=== PATIENT | female | born 1965 | race Caucasian/White ===

== ENCOUNTER 2024-11-20 09:12 | Emergency (ER) | payer OTHER, SELFPAY ==
--- NOTE | ~2024-11-20 | XR_ITS ---
HISTORY: Rt. knee pain x1 day, NKI COMPARISON: None TECHNIQUE: 3 views of the right knee were performed FINDINGS: No acute or subacute fracture, erosion, lytic or sclerotic lesion. Medial and lateral tibiofemoral joint space narrowing is identified. No suprapatellar joint effusion is identified. The infrapatellar joint space is clear. IMPRESSION: Degenerative disease, without acute fracture. Reviewed, dictated and finalized at location A. SPECIALIST
[2024-11-20 09:12] VITALS: BP 166/73; PULSE 97; RESP 16; TEMP 36.4; O2SAT 99
--- NOTE | 2024-11-20 09:30 | ED_ITS ---
HPI - Extremity Problem General Chief complaint: Extremity Problem,Nontraumatic Stated complaint: right knee pain Time Seen by Provider: 11/20/24 09:30 Source: patient and family Mode of arrival: ambulatory Limitations: no limitations History of Present Illness HPI Narrative: 5 years old white female drove herself to the emergency room because of pain at the right knee. Patient went to sleep on the couch yesterday for the 1st time and was doing okay, workup with right knee pain anteriorly, worse when she tries to bend it. She denies any trauma. Related Data Home Medications ?Medication ?Instructions ?Recorded ?Confirmed ?Last Taken ?Type omeprazole 20 mg capsule,delayed 20 mg PO DAILY 11/20/24 11/20/24 History release Allergies Allergy/AdvReac Type Severity Reaction Status Date / Time No Known Allergies Allergy Mild Verified 11/20/24 09:18 Review of Systems Review of Systems: All systems reviewed & are unremarkable except as noted in HPI and below Exam Narrative: General appearance: Well-developed, well-nourished Skin: Normal color Head: Normocephalic, nontraumatic Eyes: Clear conjunctiva ENT: Oropharynx normal, ears normal, nose normal Neck: Supple, nontender Chest and respiratory: Airway patent, no respiratory distress, no accessory muscle use Heart: Regular rate/rhythm Abdomen: Soft, nontender, no organomegaly, quiet bowel sounds Vascular: Normal peripheral pulses, normal capillary refill. Musculoskeletal: slight limited range of motion, Slight tenderness anteromedially, no bruises, no swelling, no rash Neurologic: Alert and oriented ?3, FINANCIAL SERVICE REPRESENTATIVE is normal as tested, no gross motor deficit Course Vital Signs Vital signs: Vital Signs Temperature 36.4 C 11/20/24 09:12 Pulse Rate 97 11/20/24 09:12 Respiratory Rate 16 11/20/24 09:12 Blood Pressure 166/73 H 11/20/24 09:12 Pulse Oximetry 99 11/20/24 09:12 Oxygen Delivery Room Air 11/20/24 09:12 Temperature 36.4 C 11/20/24 09:12 Pulse Rate 97 11/20/24 09:12 Respiratory Rate 16 11/20/24 09:12 Blood Pressure 166/73 H 11/20/24 09:12 Pulse Oximetry 99 11/20/24 09:12 Oxygen Delivery Room Air 11/20/24 09:12 MDM - Extremity (Nontraumatic) MDM Narrative Medical decision making narrative: strain/ sprain of the right knee is my concern. Patient high likely was sleeping on the couch which is not comfortable position, waking up this morning trying to stand up noticed that pain at the front of the right knee which is gradually getting better. Strain sprain is my concern. X-ray of the right knee showed no acute abnormalities. Discharged on naproxen Imaging Data My impression: x-ray of the right knee showed no acute abnormalities Critical Care Time Critical Care Time Critical Care Time: No Discharge Plan Discharge Clinical Impression: Acute pain of right knee Patient Disposition: Home, Self-Care Condition: Stable Instructions: Knee Sprain (ED) Additional Instructions: Return if symptoms are worsening , call your family physician for appointment, take Tylenol as as needed for aches and pain, continue home medications. Increase home of resolved to 40 mg once a day when you are taking naproxen Patient Language: Citizen Of [place] Prescriptions: New naproxen [Naprosyn] 500 mg tablet 500 mg PO BID PRN (Reason: pain) Qty: 10 0RF No Action omeprazole 20 mg capsule,delayed release(DR/EC) 20 mg PO DAILY Follow-up/Referrals: UNKNOWN,DOCTOR [Primary Care Provider] -
[2024-11-20] MEDS: HYDROcodone/acetaminophen (*CRX) 5-325 MG TABLET 1 TAB PO (09:42)
[2024-11-20] MEDS: IBUPROFEN 600 MG TABLET PO (09:43)
[2024-11-20 10:04] VITALS: BP 152/85; PULSE 85; RESP 16; TEMP 36.4; O2SAT 97
== END 2024-11-20 10:04 | disposition home or self-care (01) ==
LOC: CHSED 09:56
PROVIDERS: Emergency Provider Emergency Medicine
DX: M25.561 Pain in right knee (principal)
CPT/HCPCS: 73562; 99283; A9270

== ENCOUNTER 2025-06-16 13:11 | Emergency (ER) | payer OTHER, SELFPAY ==
--- NOTE | 2025-06-16 13:11 | ED_ITS ---
HPI - Skin/Abscess/Foreign Bdy General Chief complaint: Skin/Abscess/Foreign Body Stated complaint: shingles Time Seen by Provider: 06/16/25 13:11 Source: patient Mode of arrival: ambulatory Limitations: no limitations History of Present Illness HPI narrative: Patient is a 60-year-old female with a right thorax front and back rash for the past week. Patient went to urgent care on Thursday and was given Valtrex or acyclovir 3 times a day. They would not give her pain medicine per facility policy. She is having lots of pain in this area. MD complaint: rash Onset (ago): week(s) ( One) Location: chest ( anterior and posterior on the right) Severity: moderate Severity scale (1-10): 5 Quality: burning, sharp and constant Pain Consistency: constant Relieving factors: other ( ice helps) Exacerbating factors: movement Context: other ( patient having right anterior and posterior chest thorax rash with pain the past week) Associated symptoms: denies other symptoms Treatments prior to arrival: other ( antiviral) Related Data Home Medications ?Medication ?Instructions ?Recorded ?Confirmed ?Last Taken ?Type omeprazole 20 mg capsule,delayed 20 mg PO DAILY 11/20/24 11/20/24 History release valacyclovir 1 gram tablet 1,000 mg PO Q8H 06/16/25 Unknown History Allergies Allergy/AdvReac Type Severity Reaction Status Date / Time No Known Allergies Allergy Mild Verified 06/16/25 13:17 Review of Systems Review of Systems: All systems reviewed & are unremarkable except as noted in HPI and below Constitutional: Constitutional: Reports no additional constitutional complaints Eyes: Eyes: Reports no additional eye complaints ENT: Reports system reviewed and no additional complaints, except as documented Cardiovascular: Cardiovascular: Reports no additional cardiovascular complaints Respiratory: Respiratory: Reports no additional respiratory complaints Gastrointestinal: Gastrointestinal: Reports no additional gastrointestinal complaints Genitourinary: Genitourinary: Reports no additional female genitourinary complaints Musculoskeletal: Musculoskeletal: Reports no additional musculoskeletal complaints Integumentary/Breasts: Skin/Breast: Reports system reviewed and no additional complaints, except as docu Neurologic: Reports system reviewed and no additional complaints, except as documented Psychiatric: Psychiatric: Reports no additional psychiatric complaints Endocrine: Endocrine: Reports no additional endocrine complaints Hematologic/Lymphatic: Hematologic/Lymphatic: Reports no additional hematologic/lymphatic complaints Allergic/Immunologic: Allergic/Immunologic: Reports no additional allergic/immunologic complaints Exam Const: General: healthy appearing Nutritional Appearance: well nourished Orientation/consciousness: patient oriented x3 HENMT: Head: normal to inspection Ears: external ears normal Face/Nose/Sinus: Normal external nose present Eyes: Conjunctivae: conjunctivae normal Pupils: Equal, round and reactive pupils present EOM: EOMs intact bilaterally Neck: Neck: normal visual inspection Chest: Chest palpation & inspection: normal inspection of the chest Resp: Effort & Inspection: normal respiratory effort and not labored Auscultation: clear to auscultation bilaterally and no crackles Cardio: Rate: regular rate Rhythm: regular rhythm Heart sounds: no murmurs GI: Inspection: non-distended GI Palp: Yes Soft to palpation and No Tenderness to palpation present (GI) Auscultation: normal bowel sounds : General: Yes bladder normal to palpation Back/Spine/Pelvis: Back: no CVA tenderness Skin: General skin exam: normal color Rashes: rash noted Wounds: no wounds Other: right anterior and posterior thorax has patches of erythema with early vesicles in the dermatome range of only the right thorax; no fluid at this time; no crusting at this time Neuro: General: patient oriented x3, moves all extremities and no meningeal signs Extrem: General: normal to inspection Psych: Mental Status: mental status grossly normal Affect: normal affect Attitude: cooperative Course Vital Signs Vital signs: Vital Signs Temperature 36.6 C 06/16/25 13:12 Pulse Rate 116 H 06/16/25 13:12 Respiratory Rate 06/16/25 13:12 Blood Pressure 141/88 H 06/16/25 13:12 Pulse Oximetry 98 06/16/25 13:12 Oxygen Delivery Room Air 06/16/25 13:12 Temperature 36.6 C 06/16/25 13:12 Pulse Rate 116 H 06/16/25 13:12 Respiratory Rate 20 06/16/25 13:12 Blood Pressure 141/88 H 06/16/25 13:12 Pulse Oximetry 98 06/16/25 13:12 Oxygen Delivery Room Air 06/16/25 13:12 MDM - Skin/Abscess/Foreign Bdy MDM Narrative Medical decision making narrative: patient is a 60-year-old female with a right anterior-posterior rash of the thorax for the past week. We will continue Valtrex for another week. We will give [place]. Discharge Plan Discharge Clinical Impression: Herpes zoster Qualifiers: Herpes zoster complications: without complications Qualified Code(s): B02.9 - Zoster without complications Patient Disposition: Home Condition: Stable Instructions: Shingles (ED) Patient Language: Lao Prescriptions: New valacyclovir [Valtrex] 1 gram tablet 1,000 mg PO TID 7 Days Qty: 21 1RF hydrocodone-acetaminophen 5-325 mg tablet 1 tablet PO Q8H PRN (Reason: pain) Qty: 20 0RF No Action omeprazole 20 mg capsule,delayed release(DR/EC) 20 mg PO DAILY naproxen [Naprosyn] 500 mg tablet 500 mg PO BID PRN (Reason: pain) Qty: 10 0RF valacyclovir 1 gram tablet 1,000 mg PO Q8H Follow-up/Referrals: UNKNOWN,DOCTOR [Primary Care Provider] - Time of Disposition: 13:24
[2025-06-16 13:12] VITALS: BP 141/88; PULSE 116; RESP 20; TEMP 36.6; O2SAT 98
--- OUTSIDE RECORDS SUMMARY | 2025-06-16 13:13 | XMS_ITS | Encounter Summary ---
Author Organization [facility] Address [address] [place] [address] Phone Care Team Providers Care Header Boss Name Role Phone Magdy Brown MD Primary Care Provider [phone] Unknown, Notinfile Primary Care Provider Unavail able Encounter Details Date Type Department Care Team (Late st Contact Info) Description 03/17/2018 Orders Only [facility] ProviderOscar MD [address] [place] [id number] Social History Tobacco Use Types Packs/Day Years Used Date Smoking Tobacco: Never Assessed Comments Unknown Sex and Gender Information Value Date Recorded Sex Assigned at Not on file Legal Sex Female 8:43 AM CDT Gender Identity Not on file Sexual Orientation Not on file documented as of this encounter Plan of Treatment Not on file documented as of this encounter Procedures Procedure Name Priority Date/Time Associated Diagnosis Comments DISCHARGE LABORATORY CUMULATIVE REPORT 03/17/2018 12:00 AM CDT documented in this encounter Results * DISCHARGE LABORATORY CUMULATIVE REPORT (03/17/2018 12:00 AM CDT) Narrative 03/17/2018 12:00 AM CDT Ordered by an unspecified provider. Historical Provider LAB BLOOD ORDERABLES Gely l Result documented in this encounter Visit Diagnoses Not on filedocumented in this encounter Care Teams Header Boss Relationship Specialty Start Date End Date Magdy Brown MD [address] [address] PCP - General 03/05/18 06/12/25 Unknown, Notinfile PCP - General 06/13/25 documented as of this encounter
--- OUTSIDE RECORDS SUMMARY | 2025-06-16 13:13 | XMS_ITS | Encounter Summary ---
Author Organization [facility] Address [address] [place] [address] Care Team Providers Care Income Auditor Name Role Phone Unknown, Notinfile Primary Care Provider Unavail able Encounter Details Date Type Department Care Team ([facility] Contact Info) Description 06/16/2025 Telephone [facility] at [address] [address] Jose Felton NP [address] [place] [address] [address] [place] [address] Social History Tobacco Use Types Packs/Day Years Used Date Smoking Tobacco: Former Cigarettes 0.5 30 1 2017 Smokeless Tobacco: Never Alcohol Use Standard Drinks/Week Comments Yes 0 (1 standard drink = 0.6 oz pur e alcohol) rare Comments No Sex and Gender Information Value Date Recorded Sex Assigned at Not on file Legal Sex Female 8:43 AM CDT Gender Identity Not on file Sexual Orientation Not on file documented as of this encounter Miscellaneous Notes * Telephone Encounter - Brynn Vance LPN - 06/16/2025 11:06 AM CDT Informed pt of provider response. She verbalized understanding. * Telephone Encounter - Jose Felton NP - 06/16/2025 10:59 AM CDT We are unable to prescribe anything stronger than Tylenol or ibuprofen. I would recommend she take Tylenol alternating with ibuprofen every 4 hours. Patient may take 600 mg of ibuprofen 4 hours later2 extra-strength Tylenol and continue altering those as needed while awake. If she needs something stronger she can reach out to her PCP. * Telephone Encounter - Kim Grover - 06/16/2025 10:10 AM CDT Received call from patient; said she is in a lot of pain from the shingles and wasn't given any thing for the pain. Pt is requesting something for pain be sent to her pharmacy (Doesn't have a pcp) documented in this encounter Plan of Treatment Not on file documented as of this encounter Visit Diagnoses Not on filedocumented in this encounter Care Teams Income Auditor Relationship Specialty Start Date End Date Unknown, Notinfile PCP - General 06/13/25 documented as of this encounter
--- OUTSIDE RECORDS SUMMARY | 2025-06-16 13:14 | XMS_ITS ---
Author Organization [facility] Address [address] [place] [address] Care Team Providers Care Fishing Tool Technician Oil Well Name Role Phone Unknown, Notinfile Primary Care Provider Unavail able Active Problems Problem Noted Date Diagnosed Date History of colon cancer 06/22/2018 Adnexal mass 04/28/2018 Overview (04/30/2018): 52yo (BMI 34) who presented with pelvic pain and was found to have on OSH CT 03/03/18 a 5.4 x 6.1 cm complex cystic left adnexal lesion. US 04/12/18 revealed left complex ovarian cyst 7.1x4.4x5.7cm, EMS 7.5mm, with small anteverted uterus and normal right ovary. Colonoscopy (report not available) was performed at an outside hospital prior to planned enterprise engineer surgery and revealed an advanced lesion at the splenic flexure. Pap 03/17/18 NILM with negative HRHPV. On 04/26/18 the pt underwent a co-case with CRS involving PORFIRIO/BSO as well as by CRS a Laparoscopic-assisted subtotal colectomy with ileo descending colon anastomosis. Operative findings included a 6cm x 6cm smooth walled left adnexal cyst, benign on frozen pathology. Normal appearing uterus, tubes, right ovary. CRS noted a tattooed lesion at the distal transverse colon. Fence Post Driver path: Benign Malignant neoplasm of splenic flexure 03/22/2018 Overview (04/22/2018): Added automatically from request for surgery [id number] Acute postoperative pain of abdomen Generalized abdominal pain S/P laparoscopic colectomy Current Treatment and Therapy Plans No current plan information found. Past Treatment and Therapy Plans No past plan information found. Lifetime Dose Tracking * Chemical Lifetime Dose Automatic Entry Manual Entr y DLP 2,169 mGycm 2,169 mGycm 0 mGycm
--- OUTSIDE RECORDS SUMMARY | 2025-06-16 13:14 | XMS_ITS | Clinical Summary ---
Author Organization [facility] Address [address] [place] [address] Care Team Providers Care Star Route Mail Driver Name Role Phone Unknown, Notinfile Primary Care Provider Unavail able Allergies No known active allergies Medications buPROPion XL (WELLBUTRIN XL) 150 mg 24 hr tablet nightly. Active multivit-mineral -iron-lutein tablet Take by mouth nightly. Active cyanocobalamin, vitamin B-12, (VITAMIN B-12 ORAL) Take 1 tablet by mouth nightly. Active omeprazole (PriLOSEC) 20 mg capsule Active acetaminophen (TYLENOL EXTRA STRENGTH) 500 mg tablet Take 2 tablets (1,000 mg total) by mouth every 8 (eight) hours. 50 tablet 1 8 Active Additional Information Patient not taking.Reported on 06/13/2025 oxyCODONE (ROXICODONE) 5 mg immediate release tabletIndication s:Pain Take 1 tablet (5 mg total) by mouth every 4 (four) hours as needed for pain. 80 tablet 8 Active Additional Information Patient not taking.Reported on 06/13/2025 sulfamethoxazole -trimethoprim (BACTRIM,SEPTRA) 800-160 mg per tablet Take by mouth 2 (two) times a day. 8 Active valACYclovir (VALTREX) 1 gram tabletIndication s:Herpes zoster without complication Take 1 tablet (1,000 mg total) by mouth 3 (three) times a day for 7 days 21 tablet 5 06/20/20 25 Active Active Problems Problem Noted Date Diagnosed Date [...] at an outside hospital prior to planned ob/gyn physician surgery and revealed an advanced lesion at [...] tattooed lesion at the distal transverse colon. Photographic Spotter path: Benign Malignant neoplasm of splenic flexure 03/22/2018 Overview (04/22/2018): Added automatically from request for surgery [id number] Acute postoperative pain of abdomen Generalized abdominal pain S/P laparoscopic colectomy Encounters Date Type Department Care Team Description 06/16/2025 Telephone [facility] at [address] [address] Jose Felton NP 06/13/2025 8:45 AM CDT Office Visit [facility] at [address] [address] Jose Felton NP Herpes zoster without complication (Primary Dx) from Last 3 Months Surgical History Surgery Date Site/Laterality Comments ABCESS DRAINAGE Left forearm CATARACT EXTRACTION 12/31/2017 - 01/30/2018 Left HYSTERECTOMY 04/26/2018 COLON SURGERY 04/26/2018 Laparoscopic-assisted subtotal colectomy with ileo descending colon anastomosis. Medical History Medical History Date Comments CYRUS (obstructive sleep apnea) Acid reflux Obesity (BMI 30-39.9) Ovarian cyst Smoker recently quit Uterine fibroid PONV (postoperative nausea and vomiting) Depression no SI/HI History of colon cancer 06/22/2018 Colon cancer (HCC) Family History Medical History Relation Name Comments Anesthesia problems Neg Hx Social History Tobacco Use Types Packs/Day Years [...] on file Sexual Orientation Not on file Obstetrics History Para Term AB IAB SAB Ectopic Multiple Livin g Live Births 2 2 2 2 Date Outcome GA Total Labor Labor/2nd/3rd Weight Sex Type Anes PTL Radha A1 A5 Name Clin Term Term Last Filed Vital Signs Vital Sign Reading Time Taken Comments Blood Pressure 132/80 06/13/2025 8:40 AM CDT Pulse 104 06/13/2025 8:40 AM CDT Temperature 36.1 C (97 F) 06/13/2025 8:40 AM CDT Respiratory Rate 20 06/13/2025 8:40 AM CDT Oxygen Saturation 98% 06/13/2025 8:40 AM CDT Inhaled Oxygen Concentration - - Weight 71.7 kg (158 lb) 06/13/2025 8:40 AM CDT Height 160 cm (5' 3) 07/26/2019 3:12 PM CDT Body Mass Index 27.99 07/26/2019 3:12 PM CDT Plan of Treatment Health Maintenance Due Date Last Done Comments Breast Cancer Screening-Mammogram 1964 Colon Cancer Screening-Colonoscopy 1964 Depression Screening 1964 Hepatitis C Screening 1964 DTaP/Tdap/Td Vaccine (1 - Tdap) 1975 Hepatitis B Screening 1982 Regular Well Visit/Exam 18-64 1982 Zoster Vaccine (1 of 2) 2014 Covid-19 Vaccine (2023-2 5 season) 2024 02/23/2021, 02/02/2021 Influenza Vaccine (#1) 2025 Pneumococcal vaccine <65 Aged Out No longer eligible based on patient's age to complete this topic Insurance [facility] Address: [address] [address] [place] [address] [facility] Address: [address] [address] [place] [address] [facility] Address: [address] [address] [place] [address] [facility] Address: [address] [address] [place] [address] [facility] Address: [address] [address] [place] [address] Advance Directives For more information, please contact: [phone] * Full Code (Latest Code Status on File) Date Activated Date Inactivated Comments 04/30/2018 12:25 PM 05/16/2018 10:19 AM * Full Code Date Activated Date Inactivated Comments 04/26/2018 4:21 PM 04/29/2018 5:00 PM Care Teams Star Route Mail Driver Relationship Specialty Start Date End Date Unknown, Notinfile PCP - General 06/13/25
== END 2025-06-16 13:38 | disposition home or self-care (01) ==
PROVIDERS: Emergency Provider Emergency Medicine
DX: B02.9 Zoster without complications (principal)
CPT/HCPCS: 99283